=== PATIENT | male | born 1995 | race Caucasian/White ===

== ENCOUNTER 2024-02-15 14:06 | Outpatient (CLI) | payer OTHER, BC, SELFPAY | END 2024-02-15 14:07 | disposition home or self-care (01) | LOC: AMB 02-27 15:46 | PROVIDERS: Visit Provider Family Medicine | DX: S09.90XA Unspecified injury of head, initial encounter (principal); V23.49XA Other motorcycle driver injured in collision with car, pick-up truck or van in traffic accident, initial encounter; Y92.410 Unspecified street and highway as the place of occurrence of the external cause | CPT/HCPCS: A0425; A0427 ==

== ENCOUNTER 2024-04-28 12:32 | Outpatient (CLI) | payer BC, SELFPAY ==
--- NOTE | 2024-04-28 13:00 | CRLHL7_ITS ---
For Patients: As a result of the Century Cures Act, medical imaging exams and procedure reports are released immediately into your electronic medical record. You may view this report before your referring provider. If you have questions, please contact your health care provider. INDICATION: Generalized abdominal pain. Change in bowel habits. TECHNIQUE: CT abdomen and pelvis without contrast. COMPARISON: None. FINDINGS: Lower chest: Unremarkable. Liver: Hepatic cysts and multiple additional too small to characterize hepatic lesions which likely additional small cysts. Gallbladder and bile ducts: No stones or inflammation. No biliary dilatation. Pancreas: Unremarkable. No mass or inflammation. Spleen: Normal in size. No masses. Adrenal glands: Normal in size. No nodules. Kidneys: Normal in size. No suspicious masses, stones, or hydronephrosis. GI tract: No bowel obstruction or focal inflammation. Normal appendix. Vasculature: Abdominal aorta is normal in caliber. Lymph nodes: No lymphadenopathy. Peritoneum/Abdominal Wall: Unremarkable. No sign of mass or infiltration. No free air or significant free fluid. Pelvis: Unremarkable. No pelvic masses. Bones: Unremarkable for age. IMPRESSION: 1. No acute findings in the abdomen or pelvis. 2. Hepatic cysts and numerous additional too small to characterize hepatic lesions which are indeterminate but likely reflect additional small cysts or hamartomas. Please note that all CT scans at this facility use dose modulation, iterative reconstruction, and/or weight-based dosing when appropriate to reduce radiation dose to as low as reasonably achievable. Dictated by Gabriele Faulkner MD @ 04/29/2024 7:36:54 AM (Electronically Signed)
== END 2024-04-28 12:33 | disposition home or self-care (01) ==
LOC: CT 12:35
PROVIDERS: PCP Family Medicine; Visit Provider Internal Medicine Gastroenterology
DX: R10.84 Generalized abdominal pain (principal); K76.89 Other specified diseases of liver; R19.4 Change in bowel habit
CPT/HCPCS: 74177; Q9967